=== PATIENT | male | born 1955 | race Caucasian/White ===

== ENCOUNTER 2024-04-25 18:19 | Emergency (ER) | payer MEDICARE, BC, SELFPAY ==
[2024-04-25 18:32] VITALS: BP 156/83; PULSE 71; RESP 18; TEMP 36.8; O2SAT 99; BMI 31.0
--- NOTE | 2024-04-25 18:42 | CRLHL7_ITS ---
For Patients: As a result of the Cures Act, medical imaging exams and procedure reports are released immediately into your electronic medical record. You may view this report before your referring provider. If you have questions, please contact your health care provider. INDICATION: Bursal pain, hit olecranon. (Sic) COMPARISON: None available. TECHNIQUE: Views: 3 FINDINGS: Mineralization: Normal. Alignment: Normal. Bones and Joints: No fracture is identified. Soft Tissues: Posterior periarticular soft tissue swelling overlying the olecranon. Differential diagnostic considerations include olecranon bursitis. No joint effusion. IMPRESSION: Posterior periarticular soft tissue swelling overlying the olecranon. Differential diagnostic considerations include olecranon bursitis. No joint effusion. No fracture is identified. Dictated by Deepak Gonzalez MD @ 04/25/2024 7:20:29 PM (Electronically Signed)
[2024-04-25 19:42] LABS: Basophils Absolute Auto 0.03 K/uL (0.00-0.30); Basophils Percent Auto 0.4 % (0.0-3.0); Eosinophils Absolute Auto 0.09 K/uL (0.00-0.50); Eosinophils Percent Auto 1.2 % (0.0-7.0); Hematocrit 42.3 % (37.0-53.0); Hemoglobin* 13.7 gm/dL (13.5-17.5); Immature Granulocytes Abs Auto 0.05 K/uL (0.00-0.30); Immature Granulocytes Pct Auto 0.7 %; Lymphocytes Percent Auto 15.6 % (20-44); Mean Corpuscular HGB Conc 32 gm/dL (32-36); Mean Corpuscular Hemoglobin 31 pg (26-34); Mean Corpuscular Volume 96 fL (80-100); Monocytes Percent Auto 6.7 % (0.0-11.0); Neutrophils Percent Auto 75.4 % (42.0-72.0); Platelet Count* 200 K/uL (140-440); RDW Coefficient of Variation % 12.9 % (11.5-15.5); White Blood Count* 7.48 K/uL (4.50-11.00)
[2024-04-25 19:45] LABS: Slide Review Reflex No
[2024-04-25 20:05] LABS: C Reactive Protein* < 0.5 mg/dL (0.5-1.0)
[2024-04-25 20:28] VITALS: BP 131/86; PULSE 70; RESP 16; O2SAT 96
--- NOTE | 2024-04-25 21:39 | ED.UPPEXIN ---
HPI - Extremity Injury (Upper) General Date Seen: 04/25/24 Chief Complaint: Extremity Pain/Injury, Upper Stated Complaint: Right elbow swollen/pain Time Seen by Provider: 04/25/24 18:26 Source: patient Mode of arrival: ambulatory Limitations: no limitations History of Present Illness HPI narrative: This very nice gentleman presents here with his with a history of right elbow pain and swelling, this is been progressive over the day as long. He thinks he may have bumped his elbow earlier today but really does not have a history of severe trauma associated with this he denies any fevers chills or sweats, there is no discharge he did not have a pimple there that he popped, or anything else no history of a cat bite, or any other weird infectious etiology. Never before had this. MD complaint: injury to: right and elbow Related Data Allergies Allergy/AdvReac Type Severity Reaction Status Date / Time No Known Drug Allergies Allergy Verified 04/25/24 18:35 Review of Systems Status of ROS: Reports: 6 or more systems reviewed and unremarkable except as noted in History and below PFSH PFS Social History Smoking Status: Unknown if ever smoked Exam Narrative: Exam Narrative: Patient is seen in room 6 he is in no apparent distress, examination of his elbow shows swelling consistent with the olecranon bursitis it is a little bit red, maybe a slight bit warm, no evidence of any pointing, his range of motion of his right elbow is full in flexion extension supination pronation there is no a fusion of his elbow noted, distal radial pulses normal, sensations normal his is mapped at all with the [place] in [place]. Const: Vital Signs, click to edit/add: Vital Signs - 24 hr 04/25/24 18:32 04/25/24 20:28 Temperature 98.3 F Pulse Rate [Right Pulse Oximeter] 71 70 Respiratory Rate 18 16 Blood Pressure [Ri ght Upper Arm] 156/83 H 131/86 Pulse Oximetry 99 96 Oxygen Delivery Me thod Room Air Room Air Course Vital Signs Vital signs: Initial Vital Signs Temperature 98.3 F 04/25/24 18:32 Temperature Source Temporal Artery Scan 04/25/24 18:32 Pulse Rate 71 04/25/24 18:32 Pulse Rhythm Regular 04/25/24 18:32 Pulse Strength 3+ Normal 04/25/24 18:32 Respiratory Rate 18 04/25/24 18:32 Blood Pressure 156/83 H 04/25/24 18:32 Blood Pressure Mean 107 H 04/25/24 18:32 Blood Pressure Position Sitting 04/25/24 18:32 Pulse Oximetry 99 04/25/24 18:32 Oxygen Delivery Method Room Air 04/25/24 18:32 Vital Signs Temperature 98.3 F 04/25/24 18:32 Pulse Rate 71 04/25/24 18:32 Respiratory Rate 18 04/25/24 18:32 Blood Pressure 156/83 H 04/25/24 18:32 Pulse Oximetry 99 04/25/24 18:32 Oxygen Delivery Method Room Air 04/25/24 18:32 Temperature 98.3 F 04/25/24 18:32 Pulse Rate 70 04/25/24 20:28 Respiratory Rate 16 04/25/24 20:28 Blood Pressure 131/86 04/25/24 20:28 Pulse Oximetry 96 04/25/24 20:28 Oxygen Delivery Method Room Air 04/25/24 20:28 MDM - Extremity Injury (Upper) MDM Narrative Medical decision making narrative: I discussed with them that this is a bursitis, possibly early septic bursitis, I do not think this is gout, I do not think this is an effusion at all think there is a fracture with this. Given his range of motion I think a reasonable alternative here would be to use some Keflex, for the discomfort, and I did get him a few tablets of narcotics also after the risks benefits and side effects of these are discussed with you he will continue to use ibuprofen and use a sling for another couple days went over warning signs when he should follow-up he was very comfortable with this. Medical Records Attestation: I reviewed the patient's medical records. Lab Data Attestation: I reviewed the patient's lab results. Labs: Lab Results 04/25/24 Range/Units 19:02 WBC 7.48 (4.50-11.00) K/uL RBC 4.40 (4.30-5.90) m/uL Hgb 13.7 (13.5-17.5) gm/dL Hct 42.3 (37.0-53.0) % MCV 96 (80-100) fL MCH 31 (26-34) pg MCHC 32 (32-36) gm/dL RDW Coeff of Rxe 12.9 (11.5-15.5) % Plt Count 200 (140-440) K/uL Neut % (Auto) 75.4 H (42.0-72.0) % Lymph % (Auto) 15.6 L (20-44) % [place] % (Auto) 6.7 (0.0-11.0) % Eos % (Auto) 1.2 (0.0-7.0) % Baso % (Auto) 0.4 (0.0-3.0) % Neut # (Auto) 5.60 (1.7-7.0) K/uL Lymph # (Auto) 1.20 (0.90-2.90) K/uL [place] # (Auto) 0.50 (0.00-0.90) K/UL Eos # (Auto) 0.09 (0.00-0.50) K/uL Baso # (Auto) 0.03 (0.00-0.30) K/uL Abs Immat Gran (auto) 0.05 (0.00-0.30) K/uL Imm/Tot Granulo (auto) 0.7 % C-Reactive Protein < 0.5 L (0.5-1.0) mg/dL Imaging Data Elbow: Attestation: I have reviewed the pertinent imaging results. My impression: Negative for fracture Radiologist's impression: Patient: JASMIN HOGAN Facility:?[facility] Patient ID:?[id number] Site Patient ID:?[id number]. Site :?[id number] Study:?XRay-Extremity Right elbow 3v-04/25/2024 6:55:38 PM Ordering Physician:?Luz Ching Final Report: INDICATION: Bursal pain, hit olecranon. (Sic) COMPARISON: None available. TECHNIQUE: Views: 3 FINDINGS: Mineralization: Normal. Alignment: Normal. Bones and Joints: No fracture is identified. Soft Tissues: Posterior periarticular soft tissue swelling overlying the olecranon. Differential diagnostic considerations include olecranon bursitis. No joint effusion. IMPRESSION: Posterior periarticular soft tissue swelling overlying the olecranon. Differential diagnostic considerations include olecranon bursitis. No joint effusion. No fracture is identified. Dictated by Deepka Gonzalez MD @ 04/25/2024 7:20:29 PM (Electronic Signature) Discharge Plan Discharge Clinical Impression: Septic olecranon bursitis of right elbow Patient Disposition: Home w/ Parent or Adult Condition: Stable Instructions: Elbow Bursitis (ED) Additional Instructions: Home rest take medications as directed, pain killers as directed, please use MiraLax with these, as he will become constipated you may use ibuprofen along with the oxycodone. Please use the sling all night long. And for the next couple days, increasing redness, swelling, fevers chills, or increasing pain should prompt re-evaluation either with your primary care physician or back in the emergency room. Follow Up/Referrals: Provider,Not a Local [Primary Care Provider] - Stand Alone Forms: [facility] Info Instructions
== END 2024-04-25 20:39 | disposition home or self-care (01) ==
PROVIDERS: Emergency Provider Family Medicine
DX: M70.21 Olecranon bursitis, right elbow (principal); A41.9 Sepsis, unspecified organism
CPT/HCPCS: 36415; 73080; 85025; 86140; 99283; 99284